=== PATIENT | male | born 1935 | race Caucasian/White ===

== ENCOUNTER 2020-06-20 07:18 | Inpatient (IN) ==
--- NOTE | 2020-05-23 15:42 | PAT Medication Instructions ---
Medication Instructions Date of Service May 23, 2020 Home Medications alfuzosin 10 mg PO QAM allopurinol 300 mg PO QAM aspirin [Aspir-81] 81 mg PO QAM bumetanide 0.5 mg PO QAM dabigatran etexilate [Pradaxa] 150 mg PO BID dutasteride [Avodart] 0.5 mg PO QAM irbesartan 150 mg PO QAM nadolol 40 mg PO QAM ASK your prescriber and surgeon dabigatran etexilate [Pradaxa] 150 mg PO BID (in order for spinal anesthesia, dabigatran/Pradaxa needs to be stopped 5 days before surgery. Please check if okay with doctor that prescribes this to you) DO NOT take the morning of surgery bumetanide 0.5 mg PO QAM irbesartan 150 mg PO QAM Take morning of surgery With a small sip of water, OTHERWISE NOTHING TO EAT OR DRINK AFTER MIDNIGHT: alfuzosin 10 mg PO QAM allopurinol 300 mg PO QAM aspirin [Aspir-81] 81 mg PO QAM dutasteride [Avodart] 0.5 mg PO QAM nadolol 40 mg PO QAM Other Notes If you have any questions please call us at [phone] or [phone] or [phone] or [phone]
--- NOTE | 2020-05-25 09:18 | History & Physical Report ---
Date of Service May 25, 2020 date of surgery: 06-20-20 Assessment & Plan (1) Arthritis of right knee: Risks and benefits of procedure discussed in detail today, patient would like to proceed with a Right total knee replacement at [facility] as scheduled. will obtain medical clearance prior to surgery as well as obtain PATs at [facility]. Will place on ASA 81mg po bid x 1 month post op, f/u 2 weeks post op for routine post-operative care and x-ray, sooner if having any problems. will make arrangements for HHPT at the time of discharge. At this point in time, has failed conservative measures and would like to proceed with surgical intervention. The risks and benefits have been discussed including, but not limited to, risk of infection, nerve injury, stiffness, loss of motion, failure to improve, etc. Reasonable outcomes and options of treatment were discussed. An explanation of appropriate alternatives to the procedure that may be advantageous were discussed and their risks and benefits, as well as the risks and benefits of not proceeding with treatment. I offered to answer any additional inquiries concerning the treatment involved. All the patient's questions were answered. The patient is agreeable, understanding of the treatment plan and alternatives, and wishes to proceed with the treatment plan. History of Present Illness Chief Complaint: Right knee pain Primary Care Provider: Kenneth Masters Mr Oconnor is a 84 year old male who complains of right knee pain, presents for preop eval prior to a right total knee replacement at [facility]. He presents with pain and stiffness on the right side. He states that the symptoms have been chronic non-traumatic. Currently the patient states that the symptoms are moderate-severe and is described as aching, sharp and throbbing. The symptoms are aggravated by ascending stairs, descending stairs, daily activities, driving, first steps while awake, kneeling, movement, repetitive activities, sleeping in any position, squatting, standing, walking and weight bearing. In addition to knee pain he is also experiencing decreased mobility, difficulty bending, difficulty going to sleep, instability, joint pain, limping, nighttime awakening, pain, stiffness, tenderness and weakness. He has been treated with a corticosteroid injection without relief, Patient has had previous therapy, Patient ambulates daily with cane. Allergies Allergy/AdvReac Type Severity Reaction Status Date / Time heparin Allergy Anaphylaxis Verified 05/22/20 11:42 Home Medications Home Medications Medication Instructions Recorded Confirmed Type alfuzosin 10 mg PO QAM 05/22/20 05/22/20 History allopurinol 300 mg PO QAM 05/22/20 05/22/20 History aspirin [Aspir-81] 81 mg PO QAM 05/22/20 05/22/20 History bumetanide 0.5 mg PO QAM 05/22/20 05/22/20 History dabigatran etexilate [Pradaxa] 150 mg PO BID 05/22/20 05/22/20 History dutasteride [Avodart] 0.5 mg PO QAM 05/22/20 05/22/20 History irbesartan 150 mg PO QAM 05/22/20 05/22/20 History nadolol 40 mg PO QAM 05/22/20 05/22/20 History Past Med/Surg History Medical History Atrial fibrillation pacer/defib BPH (benign prostatic hyperplasia) DVT (deep venous thrombosis) bilat legs> years ago> due to hunting accident/fall Gout Hearing deficit Hypertension Osteoarthritis Presence of combination internal cardiac defibrillator (ICD) and pacemaker placed in [place] originally> replaced at [place] approx 2 yrs ago> placed for Afib. Crysalintronic> last checked march 28, [address] vu champagne Presence of vena cava filter has had for years > unsure when placed but after DVT's from hunting accident fall > due to hx clots. no hx of clotting disorder per pt Pulmonary embolism Nov 2019> due to "Coumadin stopped working" on pradaxia now Surgical History History of colonoscopy History of esophagogastroduodenoscopy (EGD) Social History Preferred Language: [place] Islander Communication Ability: Effective Investment Manager Required: No Beliefs That Will Affect Care: None Current Living Situation: Spouse Other Information That Helps Us Care for You: No Feels Safe at Home: Yes Safety Concerns: Feels Safe At This Time Smoking Status: Never smoker Do You Dip or Chew Tobacco: No ; Second Hand Exposure: No ; Tobacco Cessation Education Requested by Patient: No Hx Alcohol Use: No Hx Substance Use: No Review of Systems Review of Systems: All systems reviewed & are unremarkable except as noted in HPI & below Constitutional: no fever, no chills and no sweats Respiratory: no cough and no dyspnea Cardiovascular: no chest pain, no dyspnea and no orthopnea Gastrointestinal: no abdominal pain, no nausea and no vomiting Musculoskeletal: as per Subjective / HPI Physical Exam Physical Exam: Ht: 5ft 11in Wt: 86.1kg BP: 118/70 Constitutional: WD/WN, vitals as above no acute distress Respiratory: normal respiratory effort, lungs clear to auscultation no respiratory distress, no labored breathing and does not use accessory muscles Cardiovascular: Heart Sounds: no murmur Vessels: no JVD Gastrointestinal (Abdomen): normal bowel sounds, soft, nontender, no hepatosplenomegaly Musculoskeletal: Knee: + knee abnormal to inspection (Right knee), + effusion (+1 effusion), + limited ROM of knee (ROM 0/3/110), + knee ROM with crepitation, + joint line tenderness (medial joint line) and + Wayne's sign positive; no deformity, no skin erythema, no ecchymosis, no valgus laxity, no varus laxity, anterior drawer test negative, Osmin's sign negative and pivot shift test negative Results & Data Results & Data ([facility]) Diagnostic Findings right knee xray from November 2019 showing complete loss joint space tricompartmentally, there is osteophyte formation, subchondral sclerosis noted, no loose bodies, no acute bony pathology. overall impression tricompartmental degenerative changes to the right knee.
--- NOTE | 2020-05-25 11:22 | Anesthesiology Consultation ---
Date of Service May 25, 2020 Assessment & Plan (1) Encounter for pre-operative examination: - Awaiting surgeon-ordered PCP clearance (Dr. Masters). - Cardiology office visit note: 05/11/20: "stable from a cardiac standpoint. He has a history of hypertrophic cardiomyopathy with no significant LV outflow tract obstruction. He does not have any signs/symptoms of congestive heart failure. He woud like to proceed with the knee operation.. No additional cardiac testing required prior to proceeding with the knee operation.. Given his propensity to clot, I would suggest that his Pradaxa be held NOT MORE THAN 48 HOURS prior to the operative and resumed ADOLPH after the operation once adequate hemostasis has been achieved.. magnet placement is not required during the operation." Patient made aware that since Pradaxa is not able to be held prior to surgery for 5 days per cardiology recommendations, surgery will need to be done under general anesthesia. If preop COVID testing not resulted in time of surgery, rule will need to be used. OR, Lara Hampton (PAT chart check nurse) and Kacy (at surgeon's office) made aware of the above. Per PAT assessment on 05/22: Travel screen negative. No known COVID-19 positive contacts. No current COVID-19 related symptoms. Patient scheduled for preop protocol COVID-19 testing on 06/13. Awaiting results. Chart Review Chart Review: Patient seen in Pre Admission Testing Teaching & Discussion Pre-Anesthesia Teaching/Discussion Notes: Instructed NPO after midnight before surgery,except medications with 15 cc of water. Medication instructions provided according to the PAT guidelines. History Surgery Operation Date: 06/20/20 09:50 Proposed Procedures p Total Knee Arthroplasty - Kenneth Quinones DO Height/Weight Height: 5 ft 11 in Weight: 89 kg Allergies Allergy/AdvReac Type Severity Reaction Status Date / Time heparin Allergy Anaphylaxis Verified 05/22/20 11:42 Medications Home Medications Medication Instructions Recorded Confirmed Last Taken alfuzosin 10 mg PO QAM 05/22/20 05/22/20 Unknown allopurinol 300 mg PO QAM 05/22/20 05/22/20 Unknown aspirin [Aspir-81] 81 mg PO QAM 05/22/20 05/22/20 Unknown bumetanide 0.5 mg PO QAM 05/22/20 05/22/20 Unknown dabigatran etexilate [Pradaxa] 150 mg PO BID 05/22/20 05/22/20 Unknown dutasteride [Avodart] 0.5 mg PO QAM 05/22/20 05/22/20 Unknown irbesartan 150 mg PO QAM 05/22/20 05/22/20 Unknown nadolol 40 mg PO QAM 05/22/20 05/22/20 Unknown Past Medical History Medical History (Updated 05/25/20 @ 13:29 by May Multani) Atrial fibrillation BPH (benign prostatic hyperplasia) DVT (deep venous thrombosis) B/L LE (years ago) d/t fall/hunting accident Gout Hearing deficit Hypertension Hypertrophic cardiomyopathy Hypertrophic cardiomyopathy with no significant LV outflow tract obstruction Osteoarthritis Presence of combination internal cardiac defibrillator (ICD) and pacemaker Implanted 2001, Generator change 2005, 2009, 2014/[employer]/last check 03/2020 per patient (Dr. Virgen/Jai) Presence of vena cava filter Placed after DVT's (after fall/hunting accident) Pulmonary embolism 11/2019 (no PE per f/u CTA 01/2020 per cardiology office visit note)- LA ap pendege thrombus while patient on Eliquis and PE while patient on subtherapeutic warfarin-- patient switched to Pradaxa per cardiology* Exercise / Class Metabolic Activity III < 4 Walking/Shop/Light housework (uses cane PRN) Past Surgical History Surgical History History of colonoscopy History of esophagogastroduodenoscopy (EGD) Past Anesthesia History No Hx of Anesthesia Complications and No Family Hx of Anesthesia Complications History of PONV No Hx of PONV and No Hx of Motion Sickness Social History Smoking Status: Never smoker Do You Dip or Chew Tobacco: No Hx Alcohol Use: No Hx Substance Use: No substance use type: does not use Review of Systems Patient denies chest pain, shortness of breath, dyspnea on exertion, joint pain, reflux, cough, wheezing, palpitations. Physical Exam Vital Signs VITALS BP 118/58 P 64 TEMP 98.2 SP02 98%RA RESP 16 PHYSICAL Full neck and c-spine range of motion. Full TMJ range of motion. TMD 3 finger breaths Mallampati Score 3 Dentition: missing molars, several crowns on sides/molars Lungs: clear throughout to auscultation Cardiac: regular rate, irregular rhythm, no murmurs noted Spine: normal Carotid arteries: negative bruit Extremities: no edema Testing Laboratory Results 05/25/20 12:03 05/25/20 12:03 PT 13.9 Seconds (9.0-12.0) H 05/25/20 12:03 INR 1.3 (0.9-1.1) H 05/25/20 12:03 APTT 50.9 Seconds (21.0-31.0) H* 05/25/20 12:03 Hemoglobin A1c 5.6 % (4.5-5.6) 05/25/20 12:03 Urine Color Yellow 05/25/20 12:03 Urine Appearance Clear (Clear) 05/25/20 12:03 Urine pH 5.0 (4.5-7.5) 05/25/20 12:03 Ur Specific [place] 1.023 (1.000-1.030) 05/25/20 12:03 Urine Protein Negative (Negative) 05/25/20 12:03 Urine Glucose (UA) Negative (Negative) 05/25/20 12:03 Urine Ketones Negative (Negative) 05/25/20 12:03 Urine Nitrite Negative (Negative) 05/25/20 12:03 Ur Leukocyte Esterase Negative (Negative) 05/25/20 12:03 Blood Type B Negative 05/25/20 12:03 Antibody Screen NEGATIVE 05/25/20 12:03 Electrocardiogram Date: 12/22/19 A. fib at 70bpm. Chest X-Ray Date: 05/25/20 FINDINGS: Mild cardiomegaly. Unipolar cardiac pacemaker. Lungs are clear. The diaphragms are smooth. IMPRESSION: No acute process. Echocardiogram Date: 01/18/20 "EF 50-55, CLAUDY (no LVOT obst), JEREMIAH, myxMV, mild-mod MR, Kelli, AFIB" per 04/2020 cardiology office visit note, attempting to obtain official ECHO report. Stress Test Date: 10/04/15 Type: nuclear (Lexiscan) "EF 46, normal perfusion" per 04/2020 cardiology office visit note, attempting to obtain official ECHO report. Other Testing Pacer/ICD check: 03/28/20: RVP 10%. No shocks. "No significant events.. not pacemaker dependent" per cardiology office visit note 04/2020.
--- NOTE | 2020-05-25 12:50 | XRay Report ---
XR chest Pre-admission PA/Lat CLINICAL HISTORY: PAT preoperative COMPARISON STUDY: No previous studies for comparison. FINDINGS: Mild cardiomegaly. Unipolar cardiac pacemaker. Lungs are clear. The diaphragms are smooth. IMPRESSION: No acute process. ACT 112: Negative or not required by law. The above report was generated using voice recognition software. It may contain grammatical, syntax or spelling errors. Electronically signed by: Lenny Shaw M.D. 05/25/2020 12:49 PM
[2020-05-25 13:24] LABS: Basophils # (auto) 0.04 K/uL (0-0.2); Basophils % (auto) 0.6 %; Eosinophils # (auto) 0.22 K/uL (0-0.5); Eosinophils % (auto) 3.2 %; Hematocrit (blood only) 37.5 % (42-52); Hemoglobin 12.3 g/dL (14.0-18.0); Immature Granulocytes # (auto) 0.03 K/uL (0.00-0.02); Immature Granulocytes % (auto) 0.4 %; Lymphocytes # (auto) 1.42 K/uL (1.2-3.4); Lymphocytes % (auto) 20.4 %; Mean Corpuscular Hemoglobin 31.1 pg (25-34); Mean Corpuscular Hgb Conc 32.8 g/dL (32-36); Mean Corpuscular Volume 94.9 fL (80-100); Monocytes # (auto) 0.58 K/uL (0.11-0.59); Monocytes % (auto) 8.3 %; Neutrophils # (auto) 4.68 K/uL (1.4-6.5); Neutrophils % (auto) 67.1 %; Platelet Count 231 K/uL (130-400); RDW Coefficient of Variation 15.5 % (11.5-14.5); RDW Standard Deviation 54.1 fL (36.4-46.3); Red Blood Count 3.95 M/uL (4.7-6.1); White Blood Count 6.97 K/uL (4.8-10.8)
[2020-05-25 13:46] LABS: Appearance Urine Clear (Clear); Bilirubin Urine Negative (Negative); Blood Urine Negative (Negative); Color Urine Yellow; Glucose Urine UA Negative (Negative); Ketones Urine Negative (Negative); Leukocyte Esterase Urine Negative (Negative); Nitrite Urine Negative (Negative); Protein Urine Negative (Negative); Specific Gravity Urine 1.023 (1.000-1.030); Urobilinogen Urine Negative (Negative)
[2020-05-25 13:53] LABS: INR 1.3 (0.9-1.1); Partial Thromboplastin Ratio 1.8; Prothrombin Time 13.9 Seconds (9.0-12.0)
[2020-05-25 14:03] LABS: Partial Thromboplastin Time 50.9 Seconds (21.0-31.0)
[2020-05-25 14:16] LABS: Albumin Level 3.6 gm/dl (3.4-5.0); BUN Creatinine Ratio 44.1 (10-20); Calcium 8.7 mg/dl (8.5-10.1); Creatinine Clr Calc Pharmacy 53.2 ml/min; Est GFR (Non-African American) 60.4; Potassium 4.2 mmol/L (3.5-5.1)
[2020-05-25 14:24] LABS: Estimated Average Glucose 114 mg/dl; Hemoglobin A1C 5.6 % (4.5-5.6)
[~2020-06-20 07:18] MED LIST: ACETAMINOPHEN 500 MG TAB PO SCH; BUPIVACAINE 0.5 % 5 MG/1 ML PF 10ML VIAL ONE; CEFAZOLIN 2000MG 2,000 MG/15 ML SYR IV SCH; CeleBREX 200 MG CAP PO SCH; FAMOTIDINE 20 MG TAB PO SCH; GABAPENTIN 300 MG CAP PO SCH; LR 500ML BOLUS, THEN 15ML/HR IV SCH; METOCLOPRAMIDE HCL 10 MG TABLET PO SCH; TRANEXAMIC ACID 1,000 MG **IV Intra-op IV SCH; TRANEXAMIC ACID 1,000 MG **IV Pre-op IV SCH; dexAMETHasone 4 MG TAB PO SCH
[2020-06-20] MEDS ORDERED: fentaNYL citrate 100 MCG/2 ML VIAL ONE (07:37)
[2020-06-20] MEDS ORDERED: LIDOCAINE HCL 2% 2 ML VIAL/AMP(20MG/ML) INFIL ONE (07:37)
[2020-06-20] MEDS ORDERED: MIDAZOLAM HCL 1 MG/ML 2ML VIAL ONE (07:37)
[2020-06-20] MEDS ORDERED: PROPOFOL IV EMULSION 10 MG/ML 20 ML VIAL IV ONE ×2 (07:37)
--- NOTE | 2020-06-20 08:23 | History & Physical Bridge Note ---
Date of Service June 20, 2020 History & Physical Bridge Note I have examined the patient, reviewed the History & Physical and in the interval since the performance of the History & Physical I have noted the following changes of clinical significance: no changes noted
[2020-06-20] MEDS ORDERED: BACITRACIN INJ 50,000 UNIT VIAL ONE (08:50)
[2020-06-20] MEDS ORDERED: ROPIVACAINE 0.5% HCL/PF 150 MG, BUPIVACAINE 0.5% MPF 30 ML, EPINEPHrine 30MG/30ML (OR U... INSTIL SCH (09:00)
[2020-06-20] MEDS ORDERED: ONDANSETRON INJ 2 MG/ML 2 ML VIAL ONE (09:02)
[2020-06-20] MEDS ORDERED: ePHEDrine sulfate 50 MG/ML AMP IV PRN (09:04)
[2020-06-20] MEDS ORDERED: ATROPINE SULFATE 0.1 MG/ML 10ML SYR IV PRN (09:04)
[2020-06-20] MEDS ORDERED: fentaNYL citrate 100 MCG/2 ML VIAL IV PRN (09:04)
[2020-06-20] MEDS ORDERED: ONDANSETRON INJ 2 MG/ML 2 ML VIAL IV PRN ×2 (09:04→12:59)
[2020-06-20] MEDS ORDERED: ePHEDrine sulfate 50 MG/ML SYR ONE (10:10)
--- NOTE | 2020-06-20 10:46 | Operative Report ---
Post Operative Report Pre & Post Diagnosis Operation Date: 06/20/20 09:40 Pre-Op Diagnosis: RIGHT KNEE OSTEOARTHRITIS Post-Op Diagnosis: RIGHT KNEE OSTEOARTHRITIS I identified the patient and participated in the time-out.: Yes Procedure Operation Date: 06/20/20 09:40 Actual Procedures p Right Total Knee Arthroplasty(Right) [employer] Nep[employer] journey to non-block total knee arthroplasty size 6 femur 6 tibia 10 polyethylene 35 oval patella- Kenneth Quinones DO Surgeon Kenneth Quinones DO Gas Meter Installer Helper MARIBEL Martines Estimated Blood Loss 5 Findings Consistent with Post-Op Diagnosis Patient presents with severe end-stage DJD right knee 20 degree flexion contracture varus alignment subchondral cystic changes eburnated [id number] marginal osteophytes with varus alignment and a moderate to large effusion Specimens Bone and cartilage Drains Medium bore Hemovac Anesthesia Type MAC Spinal Regional Complications none Disposition Accompanied Patient To Recovery: No Disposition: Recovery Room Indications Patient presents with severe end-stage tricompartmental degenerative joint disease of the right knee varus alignment 20 degree flexion contracture large medial osteophytes with eburnated [id number] and moderate to large effusion patient is failed attempted conservative management clinic physical therapy anti-inflammatories relative rest activity modification corticosteroid injection as well as Visco supplementation Description of Procedure After proper prepping and draping of the Right lower extremity anterior midline incision was made over the region of the extensor extensor mechanism after meticulous hemostasis was obtained and maintained in subcutaneous tissues a medial parapatellar incision was made The patella was subluxed lateralward the medial lateral gutter were cleaned from any hypertrophic synovitis and scar tissue of the distal femoral block was placed and the distal femoral osteotomy cut was made subsequently the chamfers anterior and posterior osteotomy cuts were made utilizing the 4-in-1 block the tibia was subsequently subluxed anteriorward medial and ateral meniscal remnants were excised in their entirety remnants of the anterior and posterior cruciate ligaments were excised in their entirety excellent exposure of the proximal tibia was obtained the tibial osteotomy guide was placed on the proximal tibial osteotomy cut was made once again the knee was irrigated with copious amounts of sterile saline solution the patella was subsequently everted lateralward thickened scar tissue around the patella was removed the patella was subsequently cut utilizing a freehand technique and was drilled prepared for final preparation and placement of pat magdi socially flexion-extension gaps were checked and the equal and symmetric trials were placed to the appropriate femoral and tibial trials with poly-spacer being placed for equal flexion and extension gaps and full range of motion including extension to 0 and flexion to 140 the trial components after having been taken to recovery range of motion was subsequently removed meticulous hemostasis was obtained and maintained subsequently a knee block injection of joint cocktail including ropivacaine 0.5% 150 mg. Bupivacaine 0.5% epinephrine 1-200,030 mL's toradol 30 mg dexamethasone 4 mg ketamine 10 mg clonidine 100 micrograms normal saline solution 30 mg was infiltrated into the soft tissues of the posterior knee medial lateral gutters and periosteal synovium special attention was paid to protect neurovascular structures at all times subsequently trial components having been removed the knee was irrigated with sterile saline solution. debris was removed the proximal tibia was subsequently prepared and was made ready for the placement of the tibial component tibial component was also cemented and tamped into position the femoral component was subsequently placed and cemented in the position the patellar component was subsequently cemented in position because hemostasis once again obtained and maintained wound having been thoroughly irrigated with debridement and debridement lavage was performed as well as a medial parapatellar incision closed with #1 Vicryl in interrupted fashion subcutaneous was closed with #2 Vicryl skin was closed with skin clips. PA-C was necessary for prepping and drapping as well as wound closure of deep fascia Sub cutaneous tissue and skin and was necessary for the case. A sterile compressive dressing was placed patient was taken to recovery in stable condition of report dictated by Joni I attest to the content of the Intraoperative Record and any orders documented therein. Any exceptions are noted below. I attest to the content of the Intraoperative Record and any orders documented therein. Any exceptions are noted below.
--- NOTE | 2020-06-20 12:05 | Anesthesiology Progress Note ---
Date of Service June 20, 2020 Anesthesia Post Procedure Vital Signs Vital Signs: Temp Pulse Pulse Resp BP Pulse Ox 06/20/20 11:55 58 L 16 146/74 H 96 06/20/20 11:45 58 L 19 136/74 98 06/20/20 11:35 56 L 13 141/80 H 100 06/20/20 11:25 96.3 F L 54 L 18 150/78 H 100 06/20/20 08:14 97.7 F 59 L 18 154/90 H 100 Pain Intensity Right Knee: Pain Intensity: 0 Transfer of Care Handoff Completed per policy Notes Mental Status: alert / awake / arousable and participated in evaluation Patient Amnestic to Procedure: Yes Nausea / Vomiting: adequately controlled Pain: adequately controlled Airway Patency, RR, SpO2: stable & adequate BP & HR: stable & adequate Hydration State: stable & adequate Anesthetic Complications: no major complications apparent and Pt Satisfied with anesthetic care
--- NOTE | 2020-06-20 12:12 | XRay Report ---
XR knee RT 1 or 2V routine CLINICAL HISTORY: Surgical Post Op COMPARISON: None. DISCUSSION: Anatomic alignment post total right knee arthroplasty. Could contact between prosthetic a nd underlying bone. Expected soft tissue postoperative change IMPRESSION: Anatomic alignment post total right knee arthroplasty. ACT 112: Negative or not required by law. The above report was generated using voice recognition software. It may contain grammatical, syntax or spelling errors. Electronically signed by: Lenny Shaw M.D. 06/20/2020 12:11 PM
[2020-06-20] MEDS ORDERED: NALOXONE HCL 0.4 MG/1 ML VIAL/CARP IV PRN (12:59)
[2020-06-20] MEDS ORDERED: MAGNESIUM HYDROXIDE SUSP 30 ML UDC PO PRN (12:59)
[2020-06-20] MEDS ORDERED: bisacodyL 10 MG SUPP PR PRN (12:59)
[2020-06-20] MEDS ORDERED: METOCLOPRAMIDE HCL INJ 5 MG/ML 2 ML VIAL IV PRN (12:59)
[2020-06-20] MEDS ORDERED: HYDROmorphone INJ 0.5 MG/0.5 ML SYR IV PRN (12:59)
[2020-06-20] MEDS: SODIUM CHLORIDE 0.9% 1000ML 1,000 ML IV SCH (14:29)
[2020-06-20] MEDS: KETOROLAC TROMETHAMINE 15 MG/ML VIAL IV SCH ×2 (14:29→20:16)
[2020-06-20] MEDS: ACETAMINOPHEN 500 MG TAB PO SCH (16:35)
[2020-06-20] MEDS: CEFAZOLIN 2000MG 2,000 MG/15 ML SYR IV SCH (16:44)
[2020-06-20] MEDS: AVODART: ORDER AWAITING ACTION SCH (17:14)
[2020-06-20] MEDS: SENNA 8.6 MG TAB PO SCH (20:16)
[2020-06-20] MEDS: DOCUSATE SODIUM 100 MG CAP PO SCH (20:16)
[2020-06-21] MEDS: SODIUM CHLORIDE 0.9% 1000ML 1,000 ML IV SCH (01:13)
[2020-06-21] MEDS: CEFAZOLIN 2000MG 2,000 MG/15 ML SYR IV SCH (01:13)
[2020-06-21] MEDS: AVODART: ORDER AWAITING ACTION SCH ×4 (01:14→23:14)
[2020-06-21] MEDS: KETOROLAC TROMETHAMINE 15 MG/ML VIAL IV SCH ×2 (01:16→09:16)
[2020-06-21] MEDS: ACETAMINOPHEN 500 MG TAB PO SCH ×3 (05:30→21:30)
[2020-06-21 06:17] LABS: Hematocrit (blood only) 30.1 % (42-52); Hemoglobin 9.9 g/dL (14.0-18.0); Mean Corpuscular Hemoglobin 31.5 pg (25-34); Mean Corpuscular Hgb Conc 32.9 g/dL (32-36); Mean Corpuscular Volume 95.9 fL (80-100); Platelet Count 176 K/uL (130-400); RDW Coefficient of Variation 15.4 % (11.5-14.5); RDW Standard Deviation 53.5 fL (36.4-46.3); Red Blood Count 3.14 M/uL (4.7-6.1); White Blood Count 10.95 K/uL (4.8-10.8)
[2020-06-21 06:51] LABS: BUN Creatinine Ratio 29.1 (10-20); Calcium 8.1 mg/dl (8.5-10.1); Creatinine Clr Calc Pharmacy 42.4 ml/min; Est GFR (Non-African American) 46.6; Potassium 4.7 mmol/L (3.5-5.1)
--- NOTE | 2020-06-21 07:24 | Orthopedic Progress Note ---
Date of Service June 21, 2020 Assessment & Plan (1) History of total right knee replacement: POD #1 s/p Right TKA pt/ot dvt proph with SEBASTIAN/SCD/resume his Pradaxa today will discuss with CM poss rehab vs SNF + foot drop, likely from intra-articular injection discussed typically takes 24- 36 hours to resolve, will cont to monitor (2) Right foot drop: Admission and Anticipated Discharge Date Admission Date: June 20, 2020 Subjective POD #1 s/p Right TKA Review of Systems Constitutional: no fever, no chills and no sweats Respiratory: no cough and no dyspnea Cardiovascular: no chest pain and no dyspnea Gastrointestinal: no abdominal pain, no nausea and no vomiting Physical Exam Physical Exam: Vital Signs Temp 36.5 C 06/21/20 06:57 Pulse 65 06/21/20 06:57 Resp 16 06/21/20 06:57 BP 128/70 06/21/20 06:57 Pulse Ox 96 06/21/20 06:57 Intake & Output 06/20/20 06/21/20 06/21/20 18:59 06:59 18:59 Intake Total 1300 / 3250 1950 / 3250 Output Total 120 / 880 760 / 880 Balance 1180 / 2370 1190 / 2370 Weight 89.9 kg Intake: IV 500 / 1500 1000 / 1500 Lr 1,000 ml @ 15 mls/hr IV . 300 / 300 Q24H [facility] Rx#:[id number] Nss 1000ML 1,0 00 ml @ 100 mls/ 1000 / 1000 hr IV .Q10H SC H Rx#:[id number] TRANEXAMIC ACI D / 0.7% NACL 1, 200 / 200 000 mg In 100 ml @ 600 mls/hr IV TODAY@0600 [facility] Rx#:[id number] IV Perioperative 800 / 800 Oral 950 / 950 Output: Urine 400 / 400 Estimated Blood Loss 5 / 5 Drain Output 115 / 475 360 / 475 Right Knee Hem ovac 115 / 475 360 / 475 Constitutional: WD/WN, vitals as above no acute distress Musculoskeletal: Right Leg: NVDI, calf SNT, negative carline sign. DP palpable, +foot drop. dressing clean dry and intact. Results & Data ([facility]) Vital Signs (Past 12 Hours) Vital Signs Temp Pulse Resp BP Pulse Ox 06/21/20 06:57 36.5 C 65 16 128/70 96 08/06/20 03:19 36.3 C L 63 16 150/80 H 98 06/20/20 22:58 36.8 C 58 L 16 140/81 98 Laboratory Results Laboratory Results WBC 10.95 K/uL (4.8-10.8) H 06/21/20 05:20 RBC 3.14 M/uL (4.7-6.1) L 06/21/20 05:20 Hgb 9.9 g/dL (14.0-18.0) L 06/21/20 05:20 Hct 30.1 % (42-52) L 06/21/20 05:20 MCV 95.9 fL (80-100) 06/21/20 05:20 MCH 31.5 pg (25-34) 06/21/20 05:20 MCHC 32.9 g/dL (32-36) 06/21/20 05:20 RDW Std Deviation 53.5 fL (36.4-46.3) H 06/21/20 05:20 RDW Coeff of Yanick 15.4 % (11.5-14.5) H 06/21/20 05:20 Plt Count 176 K/uL (130-400) 06/21/20 05:20 MPV 11.0 fL (7.4-10.4) H 06/21/20 05:20 Immature Gran % (Auto) 0.4 % 05/25/20 12:03 Neut % (Auto) 67.1 % 05/25/20 12:03 Lymph % (Auto) 20.4 % 05/25/20 12:03 Schley % (Auto) 8.3 % 05/25/20 12:03 Eos % (Auto) 3.2 % 05/25/20 12:03 Baso % (Auto) 0.6 % 05/25/20 12:03 Neut # (Auto) 4.68 K/uL (1.4-6.5) 05/25/20 12:03 Lymph # (Auto) 1.42 K/uL (1.2-3.4) 05/25/20 12:03 Schley # (Auto) 0.58 K/uL (0.11-0.59) 05/25/20 12:03 Eos # (Auto) 0.22 K/uL (0-0.5) 05/25/20 12:03 Baso # (Auto) 0.04 K/uL (0-0.2) 05/25/20 12:03 Immature Gran # (Auto) 0.03 K/uL (0.00-0.02) H 05/25/20 12:03 PT 13.9 Seconds (9.0-12.0) H 05/25/20 12:03 INR 1.3 (0.9-1.1) H 05/25/20 12:03 APTT 50.9 Seconds (21.0-31.0) H* 05/25/20 12:03 PTT Ratio 1.8 05/25/20 12:03 Sodium 139 mmol/L (136-145) 06/21/20 05:20 Potassium 4.7 mmol/L (3.5-5.1) 06/21/20 05:20 Chloride 112 mmol/L (98-107) H 06/21/20 05:20 Carbon Dioxide 22 mmol/L (21-32) 06/21/20 05:20 Anion Gap 6.0 (3-11) 06/21/20 05:20 BUN 40 mg/dl (7-18) H 06/21/20 05:20 Creatinine 1.38 mg/dl (0.6-1.4) 06/21/20 05:20 Est Cr Clr Drug Dosing 42.4 ml/min 06/21/20 05:20 Est GFR ( Amer) 54.0 06/21/20 05:20 Est GFR (Non-Af Amer) 46.6 06/21/20 05:20 BUN/Creatinine Ratio 29.1 (10-20) H 06/21/20 05:20 Glucose 125 mg/dl (70-99) H 06/21/20 05:20 Estimat Average Glucose 114 mg/dl 05/25/20 12:03 Hemoglobin A1c 5.6 % (4.5-5.6) 05/25/20 12:03 Calcium 8.1 mg/dl (8.5-10.1) L 06/21/20 05:20 Albumin 3.6 gm/dl (3.4-5.0) 05/25/20 12:03 Urine Color Yellow 05/25/20 12:03 Urine Appearance Clear (Clear) 05/25/20 12:03 Urine pH 5.0 (4.5-7.5) 05/25/20 12:03 Ur Specific [place] 1.023 (1.000-1.030) 05/25/20 12:03 Urine Protein Negative (Negative) 05/25/20 12:03 Urine Glucose (UA) Negative (Negative) 05/25/20 12:03 Urine Ketones Negative (Negative) 05/25/20 12:03 Urine Blood Negative (Negative) 05/25/20 12:03 Urine Nitrite Negative (Negative) 05/25/20 12:03 Urine Bilirubin Negative (Negative) 05/25/20 12:03 Urine Urobilinogen Negative (Negative) 05/25/20 12:03 Ur Leukocyte Esterase Negative (Negative) 05/25/20 12:03 Blood Type B Negative 05/25/20 12:03 Antibody Screen NEGATIVE 05/25/20 12:03 Diagnostic Findings XR knee RT 1 or 2V routine CLINICAL HISTORY: Surgical Post Op COMPARISON: None. DISCUSSION: Anatomic alignment post total right knee arthroplasty. Could contact between prosthetic and underlying bone. Expected soft tissue postoperative change IMPRESSION: Anatomic alignment post total right knee arthroplasty.
[2020-06-21] MEDS: allopurinoL 300 MG TAB PO SCH (09:17)
[2020-06-21] MEDS: DOCUSATE SODIUM 100 MG CAP PO SCH ×2 (09:17→21:30)
[2020-06-21] MEDS: MULTIVITAMIN TAB PO SCH (09:17)
[2020-06-21] MEDS: ALFUZOSIN HCL 10 MG TAB PO SCH (09:17)
[2020-06-21] MEDS: DABIGATRAN ETEXILATE 75 MG CAP PO SCH ×2 (09:17→21:31)
[2020-06-21] MEDS: nadoloL 40 MG TAB PO SCH (09:18)
[2020-06-21] MEDS: BUMETANIDE 1 MG TAB PO SCH (09:19)
[2020-06-21] MEDS: SENNA 8.6 MG TAB PO SCH (21:29)
[2020-06-21] MEDS: CeleBREX 200 MG CAP PO SCH (21:30)
[2020-06-22] MEDS: ACETAMINOPHEN 500 MG TAB PO SCH ×3 (05:16→21:59)
--- NOTE | 2020-06-22 07:19 | Orthopedic Progress Note ---
Date of Service June 22, 2020 Assessment & Plan (1) History of total right knee replacement: POD #2 s/p Right TKA pt/ot dvt proph with SEBASTIAN/SCD/resume his Pradaxa today will discuss with CM poss rehab vs SNF foot drop- Resolved (2) Right foot drop: Admission and Anticipated Discharge Date Admission Date: June 20, 2020 Subjective POD #2 s/p Right TKA Review of Systems Review of Systems: All systems reviewed & are unremarkable except as noted in HPI & below Constitutional: no fever and no chills Respiratory: no cough and no dyspnea Cardiovascular: no chest pain, no dyspnea and no orthopnea Gastrointestinal: no abdominal pain, no nausea and no vomiting Physical Exam Physical Exam: Vital Signs Temp 36.6 C 06/22/20 06:25 Pulse 61 06/22/20 06:25 Resp 16 06/22/20 06:25 BP 123/73 06/22/20 06:25 Pulse Ox 98 06/22/20 06:25 Intake & Output 06/21/20 06/22/20 06/22/20 18:59 06:59 18:59 Intake Total 490 / 1140 650 / 1140 Output Total 361 / 521 160 / 521 Balance 129 / 619 490 / 619 Intake: Oral 490 / 1140 650 / 1140 Output: Urine 250 / 350 100 / 350 Drain Output 110 / 170 60 / 170 Right Knee Hem ovac 110 / 170 60 / 170 # Bowel Movement s / Other: # Unmeasured Voi ds 1 Constitutional: WD/WN, vitals as above no acute distress Musculoskeletal: Right leg: NVDI, calf SNT, negative carline sign. DP palpable, able to wiggle toes/ankle movement without difficulty. incision clean dry and intact. expected post-operative bruising noted. foot drop resolved. Results & Data ([facility]) Vital Signs (Past 12 Hours) Vital Signs Temp Pulse Resp BP Pulse Ox 06/22/20 06:25 36.6 C 61 16 123/73 98 06/21/20 22:48 36.4 C L 65 16 122/66 97 Laboratory Results Laboratory Results WBC 10.95 K/uL (4.8-10.8) H 06/21/20 05:20 RBC 3.14 M/uL (4.7-6.1) L 06/21/20 05:20 Hgb 9.9 g/dL (14.0-18.0) L 06/21/20 05:20 Hct 30.1 % (42-52) L 06/21/20 05:20 MCV 95.9 fL (80-100) 06/21/20 05:20 MCH 31.5 pg (25-34) 06/21/20 05:20 MCHC 32.9 g/dL (32-36) 06/21/20 05:20 RDW Std Deviation 53.5 fL (36.4-46.3) H 06/21/20 05:20 RDW Coeff of Yanick 15.4 % (11.5-14.5) H 06/21/20 05:20 Plt Count 176 K/uL (130-400) 06/21/20 05:20 MPV 11.0 fL (7.4-10.4) H 06/21/20 05:20 Immature Gran % (Auto) 0.4 % 05/25/20 12:03 Neut % (Auto) 67.1 % 05/25/20 12:03 Lymph % (Auto) 20.4 % 05/25/20 12:03 [place] % (Auto) 8.3 % 05/25/20 12:03 Eos % (Auto) 3.2 % 05/25/20 12:03 Baso % (Auto) 0.6 % 05/25/20 12:03 Neut # (Auto) 4.68 K/uL (1.4-6.5) 05/25/20 12:03 Lymph # (Auto) 1.42 K/uL (1.2-3.4) 05/25/20 12:03 [place] # (Auto) 0.58 K/uL (0.11-0.59) 05/25/20 12:03 Eos # (Auto) 0.22 K/uL (0-0.5) 05/25/20 12:03 Baso # (Auto) 0.04 K/uL (0-0.2) 05/25/20 12:03 Immature Gran # (Auto) 0.03 K/uL (0.00-0.02) H 05/25/20 12:03 PT 13.9 Seconds (9.0-12.0) H 05/25/20 12:03 INR 1.3 (0.9-1.1) H 05/25/20 12:03 APTT 50.9 Seconds (21.0-31.0) H* 05/25/20 12:03 PTT Ratio 1.8 05/25/20 12:03 Sodium 139 mmol/L (136-145) 06/21/20 05:20 Potassium 4.7 mmol/L (3.5-5.1) 06/21/20 05:20 Chloride 112 mmol/L (98-107) H 06/21/20 05:20 Carbon Dioxide 22 mmol/L (21-32) 06/21/20 05:20 Anion Gap 6.0 (3-11) 06/21/20 05:20 BUN 40 mg/dl (7-18) H 06/21/20 05:20 Creatinine 1.38 mg/dl (0.6-1.4) 06/21/20 05:20 Est Cr Clr Drug Dosing 42.4 ml/min 06/21/20 05:20 Est GFR ( Amer) 54.0 06/21/20 05:20 Est GFR (Non-Af Amer) 46.6 06/21/20 05:20 BUN/Creatinine Ratio 29.1 (10-20) H 06/21/20 05:20 Glucose 125 mg/dl (70-99) H 06/21/20 05:20 Estimat Average Glucose 114 mg/dl 05/25/20 12:03 Hemoglobin A1c 5.6 % (4.5-5.6) 05/25/20 12:03 Calcium 8.1 mg/dl (8.5-10.1) L 06/21/20 05:20 Albumin 3.6 gm/dl (3.4-5.0) 05/25/20 12:03 Urine Color Yellow 05/25/20 12:03 Urine Appearance Clear (Clear) 05/25/20 12:03 Urine pH 5.0 (4.5-7.5) 05/25/20 12:03 Ur Specific [place] 1.023 (1.000-1.030) 05/25/20 12:03 Urine Protein Negative (Negative) 05/25/20 12:03 Urine Glucose (UA) Negative (Negative) 05/25/20 12:03 Urine Ketones Negative (Negative) 05/25/20 12:03 Urine Blood Negative (Negative) 05/25/20 12:03 Urine Nitrite Negative (Negative) 05/25/20 12:03 Urine Bilirubin Negative (Negative) 05/25/20 12:03 Urine Urobilinogen Negative (Negative) 05/25/20 12:03 Ur Leukocyte Esterase Negative (Negative) 05/25/20 12:03 Blood Type B Negative 05/25/20 12:03 Antibody Screen NEGATIVE 05/25/20 12:03
[2020-06-22] MEDS: AVODART: ORDER AWAITING ACTION SCH ×3 (09:42→23:49)
[2020-06-22] MEDS: DOCUSATE SODIUM 100 MG CAP PO SCH ×2 (09:43→21:59)
[2020-06-22] MEDS: allopurinoL 300 MG TAB PO SCH (09:43)
[2020-06-22] MEDS: CeleBREX 200 MG CAP PO SCH ×2 (09:43→21:58)
[2020-06-22] MEDS: nadoloL 40 MG TAB PO SCH (09:44)
[2020-06-22] MEDS: BUMETANIDE 1 MG TAB PO SCH (09:44)
[2020-06-22] MEDS: MULTIVITAMIN TAB PO SCH (09:44)
[2020-06-22] MEDS: ALFUZOSIN HCL 10 MG TAB PO SCH (09:45)
[2020-06-22] MEDS: IRBESARTAN 150 MG TAB PO SCH (09:45)
[2020-06-22] MEDS: DABIGATRAN ETEXILATE 75 MG CAP PO SCH ×2 (09:45→21:58)
[2020-06-22] MEDS: OXYCODONE HCL IR 5 MG TAB (IMMEDIATE RELEASE) PO PRN ×2 (14:46→21:57)
[2020-06-22] MEDS: SENNA 8.6 MG TAB PO SCH (21:59)
[2020-06-23] MEDS: ACETAMINOPHEN 500 MG TAB PO SCH ×3 (06:02→21:24)
[2020-06-23] MEDS: AVODART: ORDER AWAITING ACTION SCH ×3 (08:11→22:30)
[2020-06-23] MEDS: BUMETANIDE 1 MG TAB PO SCH (08:11)
[2020-06-23] MEDS: IRBESARTAN 150 MG TAB PO SCH (08:11)
[2020-06-23] MEDS: DABIGATRAN ETEXILATE 75 MG CAP PO SCH ×2 (08:12→21:24)
[2020-06-23] MEDS: nadoloL 40 MG TAB PO SCH (08:12)
[2020-06-23] MEDS: MULTIVITAMIN TAB PO SCH (08:12)
[2020-06-23] MEDS: CeleBREX 200 MG CAP PO SCH ×2 (08:12→21:24)
[2020-06-23] MEDS: DOCUSATE SODIUM 100 MG CAP PO SCH ×2 (08:12→21:24)
[2020-06-23] MEDS: ALFUZOSIN HCL 10 MG TAB PO SCH (08:13)
[2020-06-23] MEDS: allopurinoL 300 MG TAB PO SCH (08:13)
--- NOTE | 2020-06-23 09:35 | Orthopedic Progress Note ---
Date of Service June 23, 2020 Assessment & Plan (1) History of total right knee replacement: POD #3 s/p Right TKA pt/ot dvt proph with [facility]/SCD/resume his Pradaxa today Bed available on thursday for SNF foot drop- Resolved (2) Right foot drop: Admission and Anticipated Discharge Date Admission Date: June 20, 2020 Subjective POD #3 s/p Right TKA. doing well, up walking with therapy. Denies CP, SOB, N/V, dizziness Physical Exam Physical Exam: Toes mobile, NVI. Calves soft, non tender. Dressing in place. Results & Data ([facility]) Vital Signs (Past 12 Hours) Vital Signs Temp Pulse Resp BP Pulse Ox 06/23/20 06:30 36.4 C L 64 20 150/84 H 99 06/22/20 23:10 36.4 C L 59 L 18 111/75 99
[2020-06-23] MEDS: SENNA 8.6 MG TAB PO SCH (21:24)
[2020-06-24] MEDS: ACETAMINOPHEN 500 MG TAB PO SCH ×3 (06:05→21:22)
--- NOTE | 2020-06-24 08:23 | Orthopedic Progress Note ---
Date of Service June 24, 2020 Assessment & Plan (1) History of total right knee replacement: POD #4 s/p Right TKA pt/ot dvt proph with SE[facility]IAN/SCD/resume his Pradaxa Bed available on thursday for SNF foot drop- Resolved (2) Right foot drop: Admission and Anticipated Discharge Date Admission Date: June 20, 2020 Subjective POD # s/p Right TKA. doing well, eating breakfast in chair. Denies CP, SOB, N/V, dizziness Physical Exam Physical Exam: Toes mobile, NVI. Calves soft, non tender. Incision healing well. clean and dry Results & Data ([facility]) Vital Signs (Past 12 Hours) Vital Signs Temp Pulse Resp BP Pulse Ox 06/23/20 23:19 36.8 C 66 14 119/70 98
[2020-06-24] MEDS: DOCUSATE SODIUM 100 MG CAP PO SCH ×2 (09:04→21:15)
[2020-06-24] MEDS: AVODART: ORDER AWAITING ACTION SCH ×2 (09:04→16:34)
[2020-06-24] MEDS: IRBESARTAN 150 MG TAB PO SCH (09:04)
[2020-06-24] MEDS: allopurinoL 300 MG TAB PO SCH (09:05)
[2020-06-24] MEDS: MULTIVITAMIN TAB PO SCH (09:05)
[2020-06-24] MEDS: CeleBREX 200 MG CAP PO SCH ×2 (09:05→21:12)
[2020-06-24] MEDS: BUMETANIDE 1 MG TAB PO SCH (09:05)
[2020-06-24] MEDS: nadoloL 40 MG TAB PO SCH (09:05)
[2020-06-24] MEDS: DABIGATRAN ETEXILATE 75 MG CAP PO SCH ×2 (09:06→21:11)
[2020-06-24] MEDS: ALFUZOSIN HCL 10 MG TAB PO SCH (09:06)
[2020-06-24] MEDS: SENNA 8.6 MG TAB PO SCH (21:10)
[2020-06-25] MEDS: AVODART: ORDER AWAITING ACTION SCH ×3 (02:01→15:45)
[2020-06-25] MEDS: ACETAMINOPHEN 500 MG TAB PO SCH ×2 (05:36→14:21)
[2020-06-25] MEDS: BUMETANIDE 1 MG TAB PO SCH (07:45)
[2020-06-25] MEDS: allopurinoL 300 MG TAB PO SCH (07:46)
[2020-06-25] MEDS: nadoloL 40 MG TAB PO SCH (07:46)
[2020-06-25] MEDS: ALFUZOSIN HCL 10 MG TAB PO SCH (07:47)
[2020-06-25] MEDS: IRBESARTAN 150 MG TAB PO SCH (07:47)
[2020-06-25] MEDS: MULTIVITAMIN TAB PO SCH (07:48)
[2020-06-25] MEDS: DABIGATRAN ETEXILATE 75 MG CAP PO SCH (07:48)
[2020-06-25] MEDS: CeleBREX 200 MG CAP PO SCH (07:49)
[2020-06-25] MEDS: DOCUSATE SODIUM 100 MG CAP PO SCH (07:51)
--- NOTE | 2020-06-25 10:01 | Orthopedic Progress Note ---
Date of Service June 25, 2020 Assessment & Plan (1) History of total right knee replacement: POD #5 s/p Right TKA pt/ot dvt proph with [facility]IAN/SCD/resume his Pradaxa Waiting to hear about bed availability at SNF today. foot drop- Resolved (2) Right foot drop: Admission and Anticipated Discharge Date Admission Date: June 20, 2020 Subjective Pt awake, alert. No complaints. Pain controlled. States he's supposed to be going to a SNF in [facility]. Feeling well. Physical Exam Physical Exam: Incision is C/D/I. Calves are soft,NT. NV intact. Toes mobile. Results & Data ([facility]) Vital Signs (Past 12 Hours) Vital Signs Temp Pulse Resp BP Pulse Ox 06/25/20 06:37 36.7 C 69 14 127/73 97 06/24/20 22:51 36.9 C 73 14 159/83 H 97
[2020-06-25 15:28] VITALS: BP 138/81; PULSE 70; TEMP 97.9; O2SAT 99
--- NOTE | 2020-06-27 09:27 | Discharge Summary ---
Date of Service date of admission: June 20, 2020 date of discharge: 06-25-20 Admission HPI Per Admitting Provider Mr Oconnor is a 84 year old male who complains of right knee pain, presents for preop eval prior to a right total knee replacement at [facility]. He presents with pain and stiffness on the right side. He states that the symptoms have been chronic non-traumatic. Currently the patient states that the symptoms are moderate-severe and is described as aching, sharp and throbbing. The symptoms are aggravated by ascending stairs, descending stairs, daily activities, driving, first steps while awake, kneeling, movement, repetitive activities, sleeping in any position, squatting, standing, walking and weight bearing. In addition to knee pain he is also experiencing decreased mobility, difficulty bending, difficulty going to sleep, instability, joint pain, limping, nighttime awakening, pain, stiffness, tenderness and weakness. He has been treated with a corticosteroid injection without relief, Patient has had previous therapy, Patient ambulates daily with cane. Principal Diagnosis right knee arthritis Discharge Exam Vital Signs Temp 36.6 C 06/25/20 15:27 Pulse 70 06/25/20 15:27 Resp 18 06/25/20 15:27 BP 138/81 06/25/20 15: Pulse Ox 99 06/25/20 15:27 Constitutional WD/WN, vitals as above no acute distress Musculoskeletal right knee: NVDI, calf SNT, negative carline sign. DP palpable, able to wiggle toes/ankle movement without difficulty. incision clean dry and intact. expected post-operative bruising noted. Discharge Data Allergies Allergy/AdvReac Type Severity Reaction Status Date / Time heparin Allergy Anaphylaxis Verified 06/20/20 08:08 Consultations 06/20/20 12:59 Consult Case Management - Discharge Planning Routine Procedures Performed Operation Date: 06/20/20 09:40 Actual Procedures p Right Total Knee Arthroplasty(Right) - Kenneth Quinones DO Ordered Studies 06/20/20 05:00 US - OR guided needle placemen Routine Hospital Course (1) History of total right knee replacement: POD #5 s/p Right TKA pt/ot dvt proph with [facility]IAN/SCD/resume his Pradaxa Waiting to hear about bed availability at SNF today. foot drop- Resolved (2) Right foot drop: Total Time Total Time Spent Total Time Spent (In Minutes): 20 Total Time Includes: Examination of the Patient, Discharge Planning and Medication Reconciliation Discharge Plan Discharge Items Patient Disposition: Transfer Residential Fac Reason For Visit: RIGHT KNEE OSTEOARTHRITIS Discharge Diagnosis: Right total knee replacement Activity: Per Instructions section Lifting: Wait until after follow-up appointment Weightbearing: Right weightbearing Weightbearing Comment: as tolerated with walker Non-emergency contact: Surgeon Call non-emergency contact if: you have any medication questions, your temperature is above 101, your wound has increased redness, your wound has increased drainage and your wound pain has increased Follow-up/Referrals: Kenneth Masters D.O. [Primary Care Provider] - Diet: Regular Addtl Attending Provider Instructions: ACTIVITY RECOMMENDATIONS: SELF CARE INSTRUCTIONS AFTER TOTAL KNEE REPLACEMENT A. You may need to continue a physical therapy program after discharge from the hospital. There are several options available to you. Your doctor will assist you in selecting the best one for you. 1. An out-patient facility 2 to 3 times a week for therapy or home therapy. 2. Continue working on all exercises taught to you in the hospital. Your goals should be to increase bending of your knee to 90 degrees and beyond and to fully straighten your knee. B. You may progress at your own pace from walking with a walker or crutches to a cane; then to no assistive devices. C. Make walking a part of your daily routine. Be up as much as comfortable with rest periods throughout the day. Rest with leg elevation is very important. Use the ice wrap frequently for the first 3-4 weeks. D. There are no restrictions on activities. You may ride in a car, shop, part icipate in technical support analyst and all social activities. E. Wear the long elastic stockings (SEBASTIAN hose) 20 hours a day for 2 weeks after surgery. They can be removed several times a day for laundering and for a bath. F. You may shower, no tub baths until cleared by your doctor. SPECIAL CARE INSTRUCTIONS: VERY IMPORTANT TO READ AND REVIEW A. There are a few signs you need to watch for after you are home. Call [facility] if you notice any of the followin. Increased severe knee pain. Some pain is expected especially when you exercise. 2. Increased swelling in your leg or knee; pain or swelling of the calf muscle in either lower leg. 3. Any fluid drainage from the incision. 4. Shortness of breath or chest pain. B. Please call [facility] at if you have any concerns or questions about your operation or recovery. The doctor or his nurse will return your call promptly. C. You must take antibiotics before dental work, bladder, bowel or other surgery. Your doctor will provide you with a permanent care to carry describing t his precaution. IMPORTANT: * CALL IF INCREASED PAIN, REDNESS, DRAINAGE OR FEVER GREATER THAT 101. * WEAR SEBASTIAN HOSE 20 HOURS PER DAY FOR 2 WEEKS. * DERMABOND Prineo- This is a mesh tape dressing that is covered with glue. It should remain in place until the incision is properly healed, usually 10-14 days. This dressing is designed to naturally slough off. You may trim the excess mesh tape as it peels off. Incision may be briefly wet in a shower. Dry immediately by blotting with a clean, dry towel. Do not bath or swim until instructed by your doctor. Do not scratch, rub, or pick at the dressing. Do not apply any topical ointments or lotions until dressing is completely removed and/or instructed by your doctor. There may be a small piece of suture material at one end of your incision. Do not pull or trim this. If it is bothersome or catching on clothing, you may cover it with a band-aid. IF INCISION IS LEAKING THROUGH DRESSING, CALL THE OFFICE . FOLLOW UP VISIT: If appointment is not already scheduled: Please call [facility] to make a follow-up appointment for 2 weeks after your surgery at . Stand-Alone Forms: My [facility] Skilled Items Patient informed of condition?: Yes DNR: No Discharge Level of Care: Skilled Communicable Disease: No Discharge Prognosis: Stable Lines: None Urinary Catheter: No Medications and DC Order Prescriptions: New sennosides [Senokot] 8.6 mg Tablet 17.2 mg PO HS 10 Days Qty: 20 RF: 0 acetaminophen 500 mg Tablet 1,000 mg PO Q8 14 Days Qty: 84 RF: 0 oxycodone 5 mg Tablet 5 mg PO Q4H MDD 6 PRN (Reason: pain) Qty: 30 RF: 0 Continued aspirin [Aspir-81] 81 mg Tablet,Delayed Release (Dr/Ec) 81 mg PO QAM RF: 0 bumetanide 0.5 mg Tablet 0.5 mg PO QAM RF: 0 nadolol 40 mg Tablet 40 mg PO QAM RF: 0 allopurinol 300 mg Tablet 300 mg PO QAM RF: 0 irbesartan 150 mg Tablet 150 mg PO QAM RF: 0 dutasteride [Avodart] 0.5 mg Capsule 0.5 mg PO QAM RF: 0 alfuzosin 10 mg Tablet Extended Release 24 Hr 10 mg PO QAM RF: 0 Pradaxa 150 mg Capsule 150 mg PO BID RF: 0 Discharge Orders: Discharge Order (Routine); Ordered 06/25/20 Ordered By: Teddy Valentin/Other Patient Handouts: DVT Post Op Prevention, Post-Op Tips: Knee Admission Data Admit Date/Time: 06/20/20 11:29 Attending Provider: Kenneth Quinones Admit Provider: Kenneth Quinones Primary Care Provider: Kenneth Masters Other Interventions: Discharge Summary Assessment (RN) Last Done: 06/25/20 15:04
== END 2020-06-25 18:32 | DRG 470 ==
LOC: EDBD → ASU 07:18 → 3E 11:29